=== PATIENT | female | born 1960 | race Caucasian/White ===

== ENCOUNTER 2020-02-17 10:00 | Outpatient (CLI) | payer OTHER ==
[~2020-02-17 10:00] MED LIST: LEVAQUIN500 MG PO
== END 2020-02-17 15:00 | disposition home or self-care (01) ==
LOC: LAB 10:00
PROVIDERS: ATTEND Pediatrics Neonatal-Perinatal Medicine
DX: Z20.828 Contact with and (suspected) exposure to other viral communicable diseases (principal); Z11.59 Encounter for screening for other viral diseases

== ENCOUNTER 2020-04-10 08:45 | Emergency (ER) | payer OTHER ==
[~2020-04-10] VITALS: Ht 162.6 cm; Wt 59.0 kg
[2020-04-10] MEDS ORDERED: PREDNISOLONE ACE5 ML (08:51)
== END 2020-04-10 15:32 | disposition home or self-care (01) ==
LOC: ER 08:45
DX: N83.292 Other ovarian cyst, left side (principal); R10.32 Left lower quadrant pain

== ENCOUNTER → 2020-09-24 | Outpatient (CLI) | payer OTHER ==
[~2020-09-24] MED LIST changes: +PREDNISOLONE ACE5 ML
== END | disposition home or self-care (01) ==
LOC: RAD 14:09
PROVIDERS: ATTEND Orthopaedic Surgery Sports Medicine
DX: M17.11 Unilateral primary osteoarthritis, right knee (principal)

== ENCOUNTER 2023-05-08 09:33 | Emergency (ER) | payer OTHER ==
[~2023-05-08] VITALS: Ht 162.6 cm; Wt 56.7 kg
[~2023-05-08 09:33] MED LIST changes: +KETO10TA2 PO; +ROBAXIN-750750 MG PO
== END 2023-05-08 11:17 | disposition home or self-care (01) ==
LOC: ER 09:33
DX: L02.11 Cutaneous abscess of neck (principal)

== ENCOUNTER 2023-09-22 10:19 | Outpatient (CLI) | payer OTHER | END 2023-09-22 10:38 | disposition home or self-care (01) | LOC: SONOGRAMA 10:19 | DX: R10.2 Pelvic and perineal pain (principal); R05.9 Cough, unspecified ==

== ENCOUNTER → 2024-06-22 | Outpatient (CLI) | payer OTHER | END | disposition home or self-care (01) | LOC: RAD 14:58 | DX: M25.532 Pain in left wrist (principal); S69.92XA Unspecified injury of left wrist, hand and finger(s), initial encounter ==

== ENCOUNTER 2024-08-01 12:59 | Outpatient (CLI) | payer OTHER | END 2024-08-01 13:05 | disposition home or self-care (01) | LOC: SONOGRAMA 12:59 | PROVIDERS: ATTEND Family Medicine | DX: R22.1 Localized swelling, mass and lump, neck (principal); E04.1 Nontoxic single thyroid nodule ==

== ENCOUNTER 2024-09-13 13:13 | Outpatient (CLI) | payer OTHER | END 2024-09-13 13:21 | disposition home or self-care (01) | LOC: SONOGRAMA 13:13 | PROVIDERS: ATTEND Family Medicine | DX: N83.202 Unspecified ovarian cyst, left side (principal); N85.02 Endometrial intraepithelial neoplasia [EIN] ==